=== PATIENT | male | born 1975 | race Caucasian/White ===

== ENCOUNTER → 2018-11-02 | Outpatient (CLI) | payer OTHER ==
[2015-10-09 22:05] VITALS: BP 148/76
--- NOTE | 2018-11-02 12:16 | KCIC ---
Two-view bilateral hip dated 11/02/2018. No comparison available. Clinical data indication: Chronic pain. No known injury. FINDINGS: 2 views of bilateral hips show normal bony alignment. No displaced fracture. Mild hypertrophic change of the bilateral hip joint. No periostitis or bone destruction. Mild degenerative change of the bilateral SI joint and pubic symphysis. IMPRESSION: 1. No acute radiographic abnormality. 2. Mild bilateral hip DJD. Electronically signed by: Johnathon Le MD (11/02/2018 12:13 PM) [email or web address]
--- NOTE | 2018-11-02 12:17 | KCIC ---
3 views of right shoulder dated 11/02/2018. Comparison made to 05/01/2015. Clinical data indication: Chronic shoulder pain and limited range of motion. FINDINGS: 3 views right shoulder show normal bony alignment. No displaced fracture. No acute osseous or articular abnormality. Mild widening of the AC distance, unchanged. IMPRESSION: No acute radiographic abnormality. Electronically signed by: Johnathon Le MD (11/02/2018 12:14 PM) [email or web address]
== END | disposition home or self-care (01) ==
LOC: KCIC 11:08
PROVIDERS: ATTEND Family Medicine
DX: M16.0 Bilateral primary osteoarthritis of hip (principal); M89.38 Hypertrophy of bone, other site; G89.29 Other chronic pain
CPT/HCPCS: 73030; 73502

== ENCOUNTER → 2021-04-01 | Outpatient (CLI) | payer OTHER ==
[2015-10-09 22:05] VITALS: BP 148/76
[~2021-04-01] MED LIST: ZOLPIDEM 5 MG TABLET. PO ONE
--- NOTE | 2021-04-02 18:14 | SLEEP ---
DATE OF STUDY: 04/01/[address] Cheo Baltazar. OBJECTIVE: The patient is a 45-year-old male with witnessed apneas, hypersomnia and insomnia, rule out sleep apnea. He has observed snoring. Height 5 feet 10 inches, weight 215 pounds, body mass index 31. [place] sleep score 14. INTERPRETATION: Sleep architecture is characterized by sleep efficiency of 78% across the 8.4 hours of recording time. Stage volumes are appropriate for age. Sleep onset latency is 35.5 minutes. The overall apnea-hypopnea index on this study is 41.3 events per hour of sleep. There are a total of 270 respiratory events with a minimum oxygen saturation of 90%. The patient met criteria for a split night study and was titrated on various levels of CPAP and BiPAP to the final setting of 23/19 with 2 liters of oxygen bled in. At this final setting, the apnea-hypopnea index falls to 2.8 events per hour of sleep. There are only rare periodic limb movements of sleep and no significant cardiac arrhythmias. The minimum oxygen saturation is 83%. IMPRESSION: Abnormal polysomnogram showing obstructive sleep apnea-hypopnea treatable with a BiPAP setting of 23/19, 2 liters of oxygen. In addition, using a [employer]ics DreamWear full face mask, medium size. RECOMMENDATIONS: 1. The patient should be established on this setting. 2. He should avoid sedatives and alcohol and pursue weight loss. Thank you for letting us help with the patient's care. ROD DR: Li TID: [id number]
== END ==
LOC: SLPLAB 19:42
PROVIDERS: ATTEND Family Medicine
DX: G47.33 Obstructive sleep apnea (adult) (pediatric) (principal); G47.00 Insomnia, unspecified
CPT/HCPCS: 95810

== ENCOUNTER → 2021-06-07 | Outpatient (CLI) | payer OTHER ==
[2015-10-09 22:05] VITALS: BP 148/76
--- NOTE | 2021-06-07 17:17 | KCIC ---
XR KNEE_AP BILAT STANDING History: Reason: Left knee pain, arthritis. / Spl. Instructions: / History: Technique: Standing AP view of bilateral knees. Comparison: Left tibia and fibula radiograph March 21, 2011. Findings: Mild bilateral medial compartment joint space narrowing. No dislocation on AP view. No acute fracture . Sclerotic lesion within the right distal femur metaphysis along the medial aspect measures 3.3 x 1. 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 Linear density projecting adjacent to the medial left tibia measures 1.1 cm. Seen posteriorly on prio r radiograph 2011 left tibia and fibula. Impression: 1. Mild knee DJD. 2. 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 3. Linear density adjacent to the left medial tibia, may represent foreign body and seen posteriorly on prior tibia-fibula radiograph 2010. Electronically signed by: Mark Cameron DO (06/07/2021 5:14 PM) [id number]
== END ==
LOC: KCIC 11:26
PROVIDERS: ATTEND Nurse Practitioner
DX: M17.12 Unilateral primary osteoarthritis, left knee (principal); M25.862 Other specified joint disorders, left knee; M25.80 Other specified joint disorders, unspecified joint
CPT/HCPCS: 73565